=== PATIENT | female | born 1960 | race Two or more races ===

== ENCOUNTER 2018-02-21 14:53 | Emergency (ER) | payer MEDICAID ==
[~2018-02-21] VITALS: Ht 152.4 cm; Wt 52.2 kg
[2018-02-21 15:12] VITALS: BP 122/87
== END 2018-02-21 17:06 | disposition home or self-care (01) ==
LOC: ER 15:09
DX: L03.011 Cellulitis of right finger (principal); I10 Essential (primary) hypertension; Z88.1 Allergy status to other antibiotic agents; Z88.6 Allergy status to analgesic agent